=== PATIENT | female | born 1990 ===

== ENCOUNTER 2024-03-31 15:42 | Emergency (ER) | payer OTHER ==
[~2024-03-31] VITALS: Ht 152.4 cm; Wt 92.0 kg
[2024-03-31 15:48] VITALS: TEMP 98.7
[2024-03-31] MEDS ORDERED: DIPH25CA85 PO (16:15)
[2024-03-31] MEDS ORDERED: METH4TAB3 PO (16:15)
[2024-03-31] MEDS ORDERED: CETI-193 PO (16:15)
[2024-03-31] MEDS: DEXAMETHASONE SOD PHOS 4 MG/ML 5 ML VIAL IM ONE (16:40)
[2024-03-31] MEDS: DiphenhydrAMINE HCL 25 MG CAPSULE PO ONE (16:40)
[2024-03-31 16:55] VITALS: BP 129/81; PULSE 87; RESP 16; O2SAT 98
[2024-03-31] MEDS: CETIRIZINE HCL 10 MG TABLET PO ONE (17:10)
== END 2024-03-31 17:35 | disposition home or self-care (01) ==
LOC: EMS 15:42
DX: L25.9 Unspecified contact dermatitis, unspecified cause (principal)
CPT/HCPCS: 99283; 96372; J1100